=== PATIENT | male | born 1980 | race Caucasian/White ===

== ENCOUNTER 2024-11-11 09:35 | Emergency (ER) | payer OTHER, SELFPAY ==
[2024-11-11 09:39] VITALS: BP 138/91
--- NOTE | 2024-11-11 10:55 | ED.GENMED ---
History of Present Illness
General
Chief Complaint: Rabies
Source: patient
Exam Limitations: none
Time Seen by Provider: 11/11/24 09:51
Nursing documentation reviewed up to this point in time: agreed with
History of Present Illness
History of Present Illness:
see MDM
Past History
Past History
ED Past Medical History: Psychiatric
ED Past Surgical History: None
Social History
Tobacco: Smoker
Alcohol: Occasional
Drug: None
Personal: Single
Living: with family
Employment: Employed
Review of Systems
Review of Systems
Allergies reviewed?: Yes
All Other Systems: Not applicable
Phy Exam
Physical Exam
Physical Exam:
GENERAL: Alert , in no apparent distress
EYE: pupils equal and reactive
ABDOMEN: Soft, without focal tenderness, no r/g, no cvat, normal bowel sounds
NEUROLOGICAL: Alert and oriented, no focal neuro deficits
SKIN: Warm and dry, small puncture healed over the left dorsal hand, no surrounding cellulitis, full range of motion of the hand
MUSCULOSKELETAL: No edema, well perfused. neg elisabeth's sign
PSYCH: Normal and appropriate interaction.
Course
Orders/Labs/Results
Orders:
Orders
11/11/24 10:54
Rabies Immune Globulin/Pf [HyperRAB] 1,700 unit IM NOW STA
Rabies Vaccine (Pcec)/Pf [Rabavert Rabies Vacc W-Diluent] 2.5 unit IM .ONCE ONE
Vital Signs
Initial and Last Documented VS:
Initial Vital Signs
Temp Pulse Resp BP Pulse Ox
36.6 C 73 16 138/91 98
11/11/24 09:39 11/11/24 09:39 11/11/24 09:39 11/11/24 09:39 11/11/24 09:39
Last Documented Vital Signs
Temp Pulse Resp BP Pulse Ox
36.6 C 73 16 138/91 98
11/11/24 09:39 11/11/24 09:39 11/11/24 09:39 11/11/24 09:39 11/11/24 09:39
MDM/Problems Addressed
Differential Diagnosis Includes:
see MDM
MDM/Problems Addressed:
Note:
CHIEF COMPLAINT(S)
Rabies prophylaxis discussion following a cat bite.
HISTORY OF PRESENT ILLNESS
The patient is a 44-year-old male who was bitten on the hand by a stray cat approximately one month ago at an outdoor venue. 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
The patient reported that the cat appeared normal and exhibited no signs of rabies at the time of the incident. He received antibiotics and a tetanus shot within 10 days of the bite, about 1 week later. at that time, [facility] was [facility] and
they talked about rabies proph but pt declined.
in the time since, he has rethought this. Concern for rabies exposure was raised by the patients primary care physician following the incident. The venue staff reported that the cat was captured and euthanized, but no rabies testing was performed.
The patient expressed uncertainty and anxiety regarding the need for rabies vaccination due to the inability to confirm the cat�s rabies status. He described an internal debate after discussing with others and researching online. The patient was
informed about the rabies vaccine series and its preventative nature.
he ultimately requested the vaccine.
pt's hand is healing well
no fever, chills, headache, myalgias
SOCIAL DETERMINANTS AFFECTING HEALTH
The patient mentioned freelance work, indicating potential lack of consistent health insurance coverage and liberation of work-related insurance options.
ALLERGIES
Sulfa drugs.
MEDICATIONS
- Ritalin
- Lamotrigine
- Bupropion
- Pantoprazole for gastroesophageal reflux disease
PLAN
The patient is offered rabies prophylaxis given the inability to confirm the rabies status of the cat and his expressed concern. It was explained that the rabies vaccine regimen includes a series of four vaccines, including immune globulin
administration. The patient was advised that the decision to proceed with vaccination is left to his discretion and based on his comfort after understanding the risks and benefits.
DIFFERENTIAL DIAGNOSIS
The Differential Diagnosis includes, in no particular order and is not limited to:
1. Anxiety due to uncertain rabies exposure
2. Infection at the site of the cat bite
3. Tetanus
4. Rabies
5. Cellulitis
6. Cat scratch disease
7. Decision-making stress
8. Psychosomatic symptoms
9. Occupational stress
10. Allergic reaction to medications or vaccines
44-year-old male with a history of anxiety and depression presents for request for rabies series after being bit by a stray cat nearly 1 month ago. The cat had been observed prior to the bite and after bite people at this venue and had not been
exhibiting any odd behavior however it is a stray cat. The patient had been in contact with the staff at this venue and ultimately they were very uninformative regarding their claim that the cat had been euthanized. It does not sound as if the
patient was able to confirm that it was nor confirmed that it was tested for rabies. Ultimately the patient's anxiety is heightened and he is requesting the rabies vaccine. His wound is healing well. He is having no symptoms. I spoke with the
pharmacist who did confirm that there is no window that closes for rabies vaccine to be initiated.
*Pulse Oximetry
SaO2: 98
Oxygen Mode of Delivery: Room air
ED Attending Note
-
Portions of this chart may have been created with voice recognition software.� Occasional wrong word or��sound alike� substitutions may have occurred due to the inherent limitations of voice recognition software.
Discharge Plan
Departure
Patient Disposition: Home (Routine Discharge)
Date of Disposition: 11/11/24
Time of Disposition: 11:04
Patient with high blood pressure during this ER visit?: No
Condition: Fair
Covid-19: Not Applicable
Discharge Problem:
Need for post exposure prophylaxis for rabies
Instructions: Animal Bites (DC), Rabies
Prescriptions:
New
rabies vacc,human diploid (PF) 2.5 unit recon soln
See Rx Instructions .ROUTE .COMPLEX Qty: 3 0RF
Rx Instructions:
2.5 unit intramuscularly on 11/14, 11/18, 11/25
Stand Alone Forms: Rabies Vaccine Post Exp Dosing
Activity Restrictions/Additional Instructions:
your rabies series was initiated. Please return to the infusion center during normal business hours and bring your prescription and they will redosed you with your vaccine on , 11-18 and 11-25. Return for any concerns for symptoms as needed
Interventions
Interventions:
*Risk Screen - Suicide Last Done: 11/11/24 09:39
*General Assessment Last Done: 11/11/24 10:07
*Neglect/Abuse Screening Last Done: 11/11/24 09:39
*ED- Fall Risk Assessment Last Done: 11/11/24 10:07
*ED COVID-19 Vaccine History Last Done: 11/11/24 10:07
Discharge Date and Time
Print Language: CENTRAL AFRICAN
[2024-11-11] MEDS: RABAVERT RABIES VACC W-DILUENT 2.5 UNIT IM (11:24)
== END 2024-11-11 12:00 | disposition home or self-care (01) ==
LOC: EMR 09:35
PROVIDERS: EMERGENCY PHYSICIAN Emergency Medicine
DX: Z20.3 Contact with and (suspected) exposure to rabies (principal); Z23 Encounter for immunization; F17.200 Nicotine dependence, unspecified, uncomplicated; F41.9 Anxiety disorder, unspecified; Z57.8 Occupational exposure to other risk factors; Z88.2 Allergy status to sulfonamides
CPT/HCPCS: 99282; 90471; 96372; 90375; 90675

== ENCOUNTER 2024-11-25 11:34 | Outpatient (RCR) | payer OTHER, SELFPAY ==
[2024-11-14 09:21] VITALS: BP 152/81
[2024-11-14] MEDS: RABAVERT RABIES VACC W-DILUENT 2.5 UNIT IM (09:33)
[2024-11-18 10:56] VITALS: BP 142/93
[2024-11-18] MEDS: RABAVERT RABIES VACC W-DILUENT 2.5 UNIT IM (11:03)
[2024-11-25 11:54] VITALS: BP 129/78
[2024-11-25] MEDS: RABAVERT RABIES VACC W-DILUENT 2.5 UNIT IM (12:05)
== END 2024-11-28 09:11 | disposition home or self-care (01) ==
LOC: OID 11:34
PROVIDERS: ATTENDING PHYSICIAN Emergency Medicine
DX: Z20.3 Contact with and (suspected) exposure to rabies (principal); Z23 Encounter for immunization
CPT/HCPCS: 90471; 90675